=== PATIENT | female | born 2000 | race Caucasian/White ===

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

== ENCOUNTER 2020-08-22 21:08 | Emergency (ER) | payer OTHER, MEDICAID ==
[~2020-08-22] VITALS: Ht 157.5 cm; Wt 49.0 kg
[~2020-08-22 21:08] MED LIST: FLAGYL500 M1 PO; NABUMETONE 750750 M1 PO; ONDANSETRON HCL4 M2 PO; TAMIFLU75 MG PO
[2020-08-22 21:52] LABS: URINE BILIRUBIN NEGATIVE (Negative); URINE BLOOD 1+ (Negative); URINE COLOR YELLOW; URINE GLUCOSE-RANDOM NEGATIVE (Negative); URINE KETONES 1+ (Negative); URINE LEUKOCYTES-REFLEX NEGATIVE (Negative); URINE NITRITE-REFLEX NEGATIVE (Negative); URINE PROTEIN NEGATIVE (Negative); URINE SPECIFIC GRAVITY >= 1.030 (1.005-1.030); URINE UROBILINOGEN 0.2 E.U./dl (0.2-1.0)
[2020-08-22 21:53] LABS: URINE CLARITY HAZY
[2020-08-22 22:01] LABS: AMP/METHAMP Negative (Negative); BACTERIA-REFLEX >30 Many /HPF (None Seen); BARBITURATES Negative (Negative); BENZODIAZEPINES Negative (Negative); CASTS None Seen /LPF (None Seen); COCAINE Negative (Negative); METHADONE Negative (Negative); MUCUS 4-6 Moderate strn/LPF (None Seen); OPIATES Negative (Negative); PCP Negative (Negative); SQUAMOUS 0-3 Few /LPF (0-3); THC POSITIVE (Negative); URINE WBC-REFLEX 0-5 Rare /HPF (0-5)
[2020-08-22 22:02] LABS: CRYSTALS None Seen /LPF (None Seen)
[2020-08-23] MEDS ORDERED: DIAZEPAM2 MG PO (00:55)
[2020-08-23] MEDS ORDERED: ACETAMINOPHEN-1 EAC2 PO (00:55)
[2020-08-23 01:00] VITALS: BP 101/44
== END 2020-08-23 01:00 | disposition home or self-care (01) ==
LOC: M.ERS 21:08
PROVIDERS: Personal Emergency Response Attendant
DX: S06.0X0A Concussion without loss of consciousness, initial encounter (principal); S13.4XXA Sprain of ligaments of cervical spine, initial encounter; N93.8 Other specified abnormal uterine and vaginal bleeding; F17.210 Nicotine dependence, cigarettes, uncomplicated; Z79.899 Other long term (current) drug therapy; V89.2XXA Person injured in unspecified motor-vehicle accident, traffic, initial encounter; Y93.89 Activity, other specified; Y92.89 Other specified places as the place of occurrence of the external cause; Y99.8 Other external cause status

== ENCOUNTER 2021-01-25 13:23 | Emergency (ER) | payer OTHER, MEDICAID ==
[~2021-01-25] VITALS: Ht 157.5 cm; Wt 49.0 kg
[~2021-01-25 13:23] MED LIST changes: +ACETAMINOPHEN-1 EAC2 PO; +DIAZEPAM2 MG PO
[2021-01-25 13:51] LABS: URINE BILIRUBIN NEGATIVE (Negative); URINE BLOOD NEGATIVE (Negative); URINE CLARITY CLEAR; URINE COLOR YELLOW; URINE GLUCOSE-RANDOM NEGATIVE (Negative); URINE KETONES TRACE (Negative); URINE LEUKOCYTES-REFLEX NEGATIVE (Negative); URINE NITRITE-REFLEX NEGATIVE (Negative); URINE PROTEIN NEGATIVE (Negative); URINE SPECIFIC GRAVITY 1.025 (1.005-1.030)
[2021-01-25 13:52] LABS: ABSOLUTE LYMPHOCYTES 0.4 thou/uL (0.8-5.3); ABSOLUTE MONOCYTES 0.9 thou/uL (0.0-1.2); ABSOLUTE NEUTROPHILS 3.1 thou/uL (1.6-8.1); BASOPHILS 0.8 %; HEMATOCRIT 38.6 % (37.0-47.0); HEMOGLOBIN 13.1 gm/dL (12.0-15.0); LYMPHOCYTES 9.1 %; MCH 30.3 pg (26.0-34.0); MCHC 33.9 g/dL (28.0-37.0); MCV 89.4 fL (80.0-100.0); MONOCYTES 19.5 %; NUCLEATED RBCS 0 /100WBC; PLATELET COUNT* 192 thou/uL (150-400); POLYS 69.6 %; RBC 4.32 mil/uL (4.20-5.00); RDW-CV 13.6 % (10.5-14.5); WBC 4.4 thou/uL (4.0-11.0)
[2021-01-25 14:00] LABS: CALCIUM 8.6 mg/dL (8.5-10.1); CREATININE 0.9 mg/dL (0.6-1.3); POTASSIUM 3.6 mmol/L (3.5-5.1)
[2021-01-25 14:04] LABS: ALBUMIN 3.8 g/dL (3.4-5.0); TOTAL BILIRUBIN 0.3 mg/dL (<0.1-1.0); TOTAL PROTEIN 6.9 g/dL (6.4-8.2)
[2021-01-25] MEDS ORDERED: ZOFRAN ODT4 MG PO (17:48)
[2021-01-25] MEDS ORDERED: FLEXERIL PO (17:48)
--- NOTE | 2021-01-25 17:51 | EKG ---
[place] [address] ELECTROCARDIOGRAM REPORT Name: FLASH BECERRA Room: [facility]#: [id number] Admission: 01/25/21 Attend Phys: Discharge: Date of : [birth year] Date of Service: 01/25/21 1327 Report #: [id number] THIS REPORT FOR: //name// [facility] ED Test Date: 2021-01-25 Test Time: 13:27:12 Pat Name: FLASH BECERRA Department: Room: Gender: F Refueling [place]: [facility] : 2000 Requested By: Yessica Zavaleta Order Number: [id number] MD: Shin Abebe Measurements Intervals English Rate: 82 P: 71 [place]: 174 QRS: 107 QRSD: 87 T: 27 QT: 342 QTc: 400 Interpretive Statements Sinus rhythm Baseline wander in lead(s) II,III,aVF No previous ECG available for comparison Electronically Signed On 01-25-2021 17:51:28 CDT by Shin Abebe [email or web address] <ELECTRONICALLY SIGNED> By: Shin Abebe MD, [facility] 01/25/21 175 1327 1327 Shin Abebe MD, [facility] /EPI
[2021-01-25 18:08] VITALS: BP 110/80
== END 2021-01-25 18:09 | disposition home or self-care (01) ==
LOC: M.ERS 13:23
PROVIDERS: Nurse Practitioner Family
DX: U07.1 COVID-19 (principal); K52.9 Noninfective gastroenteritis and colitis, unspecified; R07.89 Other chest pain; F17.210 Nicotine dependence, cigarettes, uncomplicated; Z87.42 Personal history of other diseases of the female genital tract; Z88.8 Allergy status to other drugs, medicaments and biological substances

== ENCOUNTER 2021-05-30 13:48 | Emergency (ER) | payer OTHER, MEDICAID ==
[~2021-05-30] VITALS: Ht 157.5 cm; Wt 49.9 kg
[~2021-05-30 13:48] MED LIST changes: +FLEXERIL PO; +ZOFRAN ODT4 MG PO
[2021-05-30] MEDS ORDERED: VENTOLIN HFA 1818 GM INH (15:10)
[2021-05-30] MEDS ORDERED: IBUPROFEN 800800 M1 PO (15:10)
[2021-05-30] MEDS ORDERED: FLEXERIL PO (15:10)
[2021-05-30 15:22] VITALS: BP 125/73
== END 2021-05-30 15:22 | disposition home or self-care (01) ==
LOC: M.ERS 13:48
DX: R07.89 Other chest pain (principal); R07.81 Pleurodynia; R06.02 Shortness of breath; R10.9 Unspecified abdominal pain; F17.210 Nicotine dependence, cigarettes, uncomplicated; Z87.42 Personal history of other diseases of the female genital tract; Z88.8 Allergy status to other drugs, medicaments and biological substances